=== PATIENT | male | born 1965 | race Caucasian/White ===

== ENCOUNTER 2019-01-24 13:25 | Observation (INO) | payer BC ==
[~2019-01-24 13:25] MED LIST: ISOVUE-370 76%-LOCM 1 ML ONE
[2019-01-24 14:12] LABS: #Eosinphils 0.1 thou/uL (0.0-0.7); #Lymphocytes 1.4 thou/uL (1.20-3.40); #Neutrophils 8.4 thou/uL (1.40-6.50); %Basophils 0.1 % (0.0-1.0); %Eosinophils 1.2 % (0.0-10.0); %Monocytes 9.5 % (0.0-10.0); %Neutrophils 76.2 % (42.0-75.0); Hemoglobin 15.4 g/dL (14.0-18.0); Mean Corpuscular HGB CONC 34.6 g/dL (32.0-36.0); Mean Corpuscular Volume 86.7 fL (78.0-98.0); Mean Platelet Volume 6.6 fL (7.4-10.4); Platelet Count 256 thou/uL (130-400); RBC Distribution Width 12.6 % (11.5-14.5); Red Blood Cell (RBC) Count 5.14 mill/uL (4.70-6.10)
[2019-01-24 14:34] LABS: ALT (SGPT) 22 U/L (8-55); AST (SGOT) 19 U/L (5-34); Albumin 4.6 g/dL (3.5-5.0); Alkaline Phosphatase 75 U/L (40-150); Anion Gap 17 mmol/L (10-20); BUN (Urea Nitrogen) 14 mg/dL (8.4-25.7); Bilirubin, Total 0.7 mg/dL (0.2-1.2); Calc. Creatinine Clearance 0 mL/min (70-130); Carbon Dioxide 18 mmol/L (22-29); Chloride 104 mmol/L (98-107); Estimated GFR-MDRD Greater than 90; Globulin 3.2 g/dL (2.4-3.5); Glucose 84 mg/dL (70-105); Lipase 23 U/L (8-78); Potassium 3.5 mmol/L (3.5-5.1); Protein, Total 7.8 g/dL (6.0-8.3); Sodium 135 mmol/L (136-145)
[2019-01-24] MEDS ORDERED: HYDROmorphone 0.5 MG/0.5 ML SYRINGE ONE ×3 (14:35→17:10)
[2019-01-24] MEDS ORDERED: Bisacodyl 10 MG SUPP ONE (14:35)
[2019-01-24] MEDS ORDERED: Ondansetron PF 4 MG/2 ML Vial ONE (14:35)
--- NOTE | 2019-01-24 15:16 | CT ---
ABDOMEN AND PELVIC CT SCAN WITH IV CONTRAST: Date: 01/24/19 HISTORY: Abdominal pain, diverticulitis. FINDINGS: Small old granuloma calcification changes are noted in both lungs. The liver, gallbladder, spleen, an d adrenal glands are unremarkable. There is some minimal fat stranding in the region of the head of t he pancreas, raising concern for the possibility of some minimal pancreatitis, correlate with pancrea tic enzymes in this regard. No significant abnormal peripancreatic fluid or pseudocyst. No evidence f or renal calculus or acute obstruction. Occasional sigmoid colon diverticulosis. No CT evidence fo r acute diverticulitis. No CT evidence for acute appendicitis. Grade II spondylolisthesis of L5 over S1 with bilateral pars defects. No abscess or abnormal fluid collection. IMPRESSION: Minimal fat stranding around the region of the head of the pancreas raising concern for the possibili ty of minimal pancreatitis without abnormal fluid collection or pseudocyst. Correlate with pancreatic enzymes. No evidence for ductal dilatation. No renal calculus or obstruction. No CT evidence for acute appendicitis or acute diverticulitis. Grade II spondylolisthesis at L5-S1 with bilateral pars d efects. POS: [facility]
[2019-01-24] MEDS ORDERED: Sucralfate 1 GM/10 ML UDCUP ONE (17:57)
[2019-01-24] MEDS ORDERED: Ondansetron PF 4 MG/2 ML Vial IVP PRN (18:30)
[2019-01-24] MEDS ORDERED: Bisacodyl 5 MG TAB PO PRN (18:30)
[2019-01-24] MEDS ORDERED: Acetaminophen 650 MG Suppository PR PRN (18:30)
[2019-01-24] MEDS ORDERED: Fentanyl 100 MCG/2 ML VIAL SLOW IVP PRN (18:31)
[2019-01-24] MEDS ORDERED: Lidocaine 2% Viscous Solution 10 ML, Aluminum & Magnesium Hydroxide 30 ML SSW PRN (18:38)
--- NOTE | 2019-01-24 19:15 | HP ---
PRIMARY CARE PROVIDER: Carolina Still MD CHIEF COMPLAINT: Abdominal pain. HISTORY OF PRESENT ILLNESS: Mr. Milian is a pleasant 53-year-old gentleman, who was seen at [facility] on January 24, 2019. He reports that he had an episode of acute pancreatitis 2 or 3 years ago, for which he was hospitalized for 6 days. He reports that he started having abdominal discomfort ago. He describes it as pain across his mid abdomen, not accompanied by nausea, vomiting, or diarrhea. He describes it as a burning sensation, nonradiating, worse with drinking fluids, 7 to 8/10 at its worst. He cannot recall any relieving factors. He has been unable to tolerate diet. He presented to the emergency room because of ongoing abdominal pain. REVIEW OF SYSTEMS: All other systems reviewed and found to be negative. PAST MEDICAL HISTORY: Migraine, left shoulder arthritis, left torn rotator cuff , acute pancreatitis. PAST SURGICAL HISTORY: Appendectomy and hernia repair. FAMILY HISTORY: No family history of premature coronary artery disease. SOCIAL HISTORY: The patient denies tobacco use, alcohol use, or recreational drug use. ALLERGIES: No known drug allergies. HOME MEDICATIONS: None. PHYSICAL EXAMINATION: GENERAL: On examination, Mr. Milian is awake and alert, not in acute distress. VITAL SIGNS: Blood pressure is 117/74, pulse 71, respiratory rate 18, and oxygen saturation 98% on room air. He is afebrile. EYES: No scleral icterus, no conjunctival pallor. ENT: Moist mucosal membranes. No oropharyngeal erythema or exudates. NECK: Supple, nontender, trachea is midline. RESPIRATORY: Accessory muscles of breathing are not active. Chest wall movements are symmetric bilaterally. LUNGS: Clear to auscultation, without wheeze, rhonchi, or crepitations. CARDIOVASCULAR: S1 and S2 are heard, regular. Peripheral pulses palpable. No carotid bruit. No pericardial rub. ABDOMEN: Soft, mild right upper quadrant tenderness. No guarding or rigidity. Bowel sounds heard. No hepatomegaly. No splenomegaly. SKIN: No rashes or subcutaneous nodules. LYMPHATIC: No cervical lymphadenopathy. PSYCHIATRIC: Normal mood, normal affect. The patient is oriented to person, place, and time. LABORATORY AND DIAGNOSTIC DATA: Mr. Milian's labs and investigations were reviewed. He has leukocytosis with 11,000 white cells, of which 76% are neutrophils, normal hemoglobin, normal platelet count, decreased sodium of 135, normal potassium, decreased carbon dioxide of 18, otherwise unremarkable comprehensive metabolic profile, normal lactic acid and normal lipase level. CT scan of the abdomen and pelvis done with IV contrast showed minimal fat stranding around the region of the pancreas raising concern for the possibility of minimal pancreatitis without abnormal fluid collection or pseudocyst. There was no evidence for ductal dilatation. He had grade 2 spondylolisthesis at L5-S1 with bilateral pars defects. ASSESSMENT AND PLAN: Mr. iMlian is a pleasant 53-year-old gentleman, who was seen at [facility] on January 24, 2019. His problem list includes : 1. Abdominal pain: Mr. Milian is presenting with abdominal pain, etiology unclear at this time. Given the CT scan findings, acute pancreatitis is a possibility, although the lack of elevated lipase goes against this. We will check amylase level. We will admit the patient to the hospital. We will start him on clear fluid diet when he can tolerate diet. We will administer pain medications. We will provide intravenous hydration. 2. Migraines: The patient has history of migraines. He denies any recent migraine episodes. Many thanks for allowing me to participate in your patient's care. Please feel free to contact me with any questions or concerns. LEVEL OF RISK: Moderate. LEVEL OF COMPLEXITY: Moderate. Job ID: [id number] MTDD
[2019-01-24] MEDS ORDERED: Fentanyl 100 MCG/2 ML VIAL ONE (19:21)
[2019-01-24] MEDS: Sodium Chloride 0.9% 1,000 ML IV SCH (21:09)
[2019-01-24] MEDS: Acetaminophen 650 MG in Premix Bag 1 BAG IVPB PRN (23:41)
[2019-01-25 05:32] LABS: #Eosinphils 0.2 thou/uL (0.0-0.7); #Lymphocytes 1.5 thou/uL (1.20-3.40); #Neutrophils 6.9 thou/uL (1.40-6.50); %Basophils 0.5 % (0.0-1.0); %Eosinophils 1.7 % (0.0-10.0); %Lymphocytes 15.7 % (21.0-51.0); %Monocytes 10.6 % (0.0-10.0); %Neutrophils 71.5 % (42.0-75.0); Hemoglobin 14.2 g/dL (14.0-18.0); Mean Corpuscular HGB CONC 33.8 g/dL (32.0-36.0); Mean Corpuscular Hemoglobin 28.9 pg (27.0-31.0); Mean Corpuscular Volume 85.6 fL (78.0-98.0); Mean Platelet Volume 6.7 fL (7.4-10.4); Platelet Count 247 thou/uL (130-400); RBC Distribution Width 12.5 % (11.5-14.5); White Blood Cell (WBC) Count 9.6 thou/uL (4.8-10.8)
[2019-01-25 05:59] LABS: ALT (SGPT) 17 U/L (8-55); AST (SGOT) 17 U/L (5-34); Albumin 3.9 g/dL (3.5-5.0); Alkaline Phosphatase 66 U/L (40-150); Anion Gap 14 mmol/L (10-20); BUN (Urea Nitrogen) 9 mg/dL (8.4-25.7); Bilirubin, Total 0.6 mg/dL (0.2-1.2); Calc. Creatinine Clearance 167 mL/min (70-130); Calcium 9.2 mg/dL (7.8-10.44); Carbon Dioxide 21 mmol/L (22-29); Chloride 105 mmol/L (98-107); Estimated GFR-MDRD Greater than 90; Glucose 72 mg/dL (70-105); Lipase 13 U/L (8-78); Potassium 3.8 mmol/L (3.5-5.1); Protein, Total 6.9 g/dL (6.0-8.3); Sodium 136 mmol/L (136-145)
[2019-01-25] MEDS: Acetaminophen 650 MG in Premix Bag 1 BAG IVPB PRN (06:15)
[2019-01-25] MEDS: Enoxaparin Sodium 40 MG/0.4 ML SYRINGE SC SCH (09:27)
[2019-01-25] MEDS: Acetaminophen 325 MG TAB PO PRN ×2 (09:29→14:06)
[2019-01-25] MEDS: Sodium Chloride 0.9% 1,000 ML IV SCH ×2 (09:31→16:55)
[2019-01-25] MEDS ORDERED: Acetaminophen 1,000 MG in Premix Bag 1 BAG IVPB SCH (18:00)
--- NOTE | 2019-01-25 18:37 | PDOC.PN ---
- Subjective Encounter Start Date: 01/25/19 Encounter Start Time: 17:30 Pt seen for followup re: acute pancreatitis. Says still has abdo pain, nausea. - Objective MAR Reviewed: Yes Vital Signs & Weight: Vital Signs (12 hours) Temp Pulse Resp BP Pulse Ox 01/25/19 15:14 98.1 F 64 20 114/77 95 01/25/19 11:29 98.0 F 74 16 133/74 94 L 01/25/19 07:45 98.1 F 72 16 137/71 92 L Weight Weight 228 lb I&O: 01/24/19 01/25/19 01/26/19 06:59 06:59 06:59 Intake Total 838 4050 Output Total 900 1145 Balance -62 2905 Result Diagrams: 01/25/19 04:37 01/25/19 04:37 Additional Labs: labs reviewed by me Phys Exam - Physical Examination Obese HEENT: moist MMs, sclera anicteric, oral pharynx no lesions, 2+ tonsils Neck: no nodes, no JVD, supple, full ROM Respiratory: clear to auscultation bilateral Cardiovascular: RRR, no rub S1, S2 Gastrointestinal: soft, no distention, positive bowel sounds mild epigastric tenderness, no guarding or rigidity Neurological: moves all 4 limbs Psychiatric: normal affect, A&O x 3 Dx/Plan (1) Acute pancreatitis Code(s): K85.90 - ACUTE PANCREATITIS WITHOUT NECROSIS OR INFECTION, UNSP Status: Acute Comment: slowly improving (2) Hyponatremia Code(s): E87.1 - HYPO-OSMOLALITY AND HYPONATREMIA Status: Resolved (3) Leucocytosis Code(s): D72.829 - ELEVATED WHITE BLOOD CELL COUNT, UNSPECIFIED Status: Resolved - Plan out of bed/ambulate * . Review of Systems - Review of Systems Constitutional: negative: fever, chills, sweats, weakness, malaise Cardiovascular: negative: chest pain, palpitations, orthopnea, paroxysmal nocturnal dyspnea, edema, light headedness Gastrointestinal: Nausea, Abdominal Pain. negative: Vomiting, Diarrhea, Constipation, Melena, Hematochezia Genitourinary: negative: Dysuria, Frequency, Incontinence, Hematuria, Retention Skin: negative: Rash, Lesions, Pop, Bruising - Medications/Allergies Allergies/Adverse Reactions: Allergies Allergy/AdvReac Type Severity Reaction Status Date / Time No Known Drug Allergies Allergy Verified 01/24/19 22:58 Medications: Current Medications Acetaminophen (Tylenol) 650 mg PO Q4H PRN PRN Reason: Headache/Fever/Mild Pain (1-3) Last Admin: 01/25/19 14:06 Dose: 650 mg Acetaminophen (Tylenol) 650 mg NC Q4H PRN PRN Reason: Headache/Fever/Mild Pain (1-3) Bisacodyl (Dulcolax) 10 mg PO DAILYPRN PRN PRN Reason: Constipation Lidocaine HCl 10 ml/ Al (Hydroxide/Mg Hydroxide 30 ml) 0 ml SSW Q8H PRN PRN Reason: heartburn Last Admin: 01/25/19 15:04 Dose: 1 dose Enoxaparin Sodium (Lovenox) 40 mg SC 0900 [facility] Last Admin: 01/25/19 09:27 Dose: 40 mg Fentanyl (Sublimaze) 12.5 mcg SLOW IVP Q6H PRN PRN Reason: Pain Sodium Chloride (Normal Saline 0.9%) 1,000 mls @ 70 mls/hr IV .[id number] [facility] Last Admin: 01/25/19 16:55 Dose: 1,000 mls Acetaminophen 1,000 mg/ Device 100 mls @ 400 mls/hr IVPB NOW [facility] Stop: 01/25/19 20:00 Ondansetron HCl (Zofran) 4 mg IVP Q6H PRN PRN Reason: Nausea/Vomiting
[2019-01-26] MEDS: Ketorolac Tromethamine 30 MG/ML VIAL IVP SCH ×3 (00:18→11:31)
[2019-01-26 05:58] LABS: #Eosinphils 0.3 thou/uL (0.0-0.7); #Lymphocytes 1.5 thou/uL (1.20-3.40); #Monocytes 0.7 thou/uL (0.11-0.59); #Neutrophils 4.5 thou/uL (1.40-6.50); %Basophils 0.7 % (0.0-1.0); %Eosinophils 3.6 % (0.0-10.0); %Lymphocytes 20.9 % (21.0-51.0); %Monocytes 10.2 % (0.0-10.0); %Neutrophils 64.6 % (42.0-75.0); Mean Corpuscular HGB CONC 33.5 g/dL (32.0-36.0); Mean Corpuscular Hemoglobin 29.3 pg (27.0-31.0); Mean Corpuscular Volume 87.4 fL (78.0-98.0); Mean Platelet Volume 6.8 fL (7.4-10.4); Platelet Count 256 thou/uL (130-400); RBC Distribution Width 12.6 % (11.5-14.5); Red Blood Cell (RBC) Count 4.78 mill/uL (4.70-6.10)
[2019-01-26 06:29] LABS: Albumin 3.9 g/dL (3.5-5.0); Alkaline Phosphatase 62 U/L (40-150); Anion Gap 15 mmol/L (10-20); BUN (Urea Nitrogen) 8 mg/dL (8.4-25.7); Bilirubin, Total 0.6 mg/dL (0.2-1.2); Calc. Creatinine Clearance 163 mL/min (70-130); Calcium 9.2 mg/dL (7.8-10.44); Carbon Dioxide 21 mmol/L (22-29); Chloride 106 mmol/L (98-107); Estimated GFR-MDRD Greater than 90; Globulin 2.8 g/dL (2.4-3.5); Glucose 83 mg/dL (70-105); Potassium 3.6 mmol/L (3.5-5.1); Protein, Total 6.7 g/dL (6.0-8.3); Sodium 138 mmol/L (136-145)
[2019-01-26 06:30] LABS: ALT (SGPT) 14 U/L (8-55); AST (SGOT) 13 U/L (5-34); Lipase 9 U/L (8-78)
[2019-01-26] MEDS ORDERED: Ketorolac Tromethamine 10 MG TAB PO PRN (11:32)
[2019-01-26] MEDS: Enoxaparin Sodium 40 MG/0.4 ML SYRINGE SC SCH (11:33)
[2019-01-26 11:50] VITALS: BP 129/85; TEMP 97.6
--- NOTE | 2019-01-26 13:02 | DIS ---
DATE OF ADMISSION: 01/24/2019 DATE OF DISCHARGE: 01/26/2019 PRIMARY CARE PROVIDER: Carolina Still MD DISCHARGE DIAGNOSIS: Acute pancreatitis. CONDITION OF THE PATIENT ON THE DAY OF DISCHARGE: Stable. I assessed Mr. Milian on the day of discharge. He denies any chest pain or shortness of breath. Vital signs are stable. S1 and S2 are heard, regular. Lungs are clear to auscultation bilaterally. Abdomen is soft, nontender, bowel sounds are heard. DISCHARGE MEDICATIONS: 1. Toradol 10 mg 3 times a day as needed, prescription for 10 doses. 2. Azelastine nasal spray as needed. 3. Flonase as needed. 4. Levocetirizine as needed. HOSPITAL COURSE: Mr. Milian is a pleasant 53-year-old gentleman, who was admitted to [facility] on January 24, 2019, for acute pancreatitis based on CT imaging. Please refer to my history and physical note dated January 24, 2019, for further details. He was treated with pain medications and intravenous fluids. He slowly improved by the day of discharge. Please note, his amylase and lipase levels were normal during this hospitalization. On the day of discharge, he has normal sodium, normal potassium, creatinine 0.75, amylase 22, and lipase 9. LFTs were normal during this hospitalization. White count is 7000, hemoglobin 14, and platelet count 256,000. Many thanks for allowing me to participate in your patient's care. Please feel free to contact me with any questions or concerns. DISCHARGE DESTINATION: Home. Job ID: [id number]
== END 2019-01-26 12:35 | disposition home or self-care (01) ==
LOC: ERS 13:25 → 2SW 18:00
PROVIDERS: ADMIT Internal Medicine; ATTEND Internal Medicine
DX: K85.90 Acute pancreatitis without necrosis or infection, unspecified (principal); M19.012 Primary osteoarthritis, left shoulder; G43.909 Migraine, unspecified, not intractable, without status migrainosus; Z90.49 Acquired absence of other specified parts of digestive tract; Z98.890 Other specified postprocedural states
CPT/HCPCS: 36415; 74177; 80053; 82150; 83605; 83690; 85025; 96361; 96365; 96372; 96374; 96375; 96376; G0378; J0131; J1170; J1650; J1885; J2405; J3010; Q9966

== ENCOUNTER 2019-02-03 10:53 | Outpatient (CLI) | payer BC | END 2019-02-03 10:54 | disposition home or self-care (01) | LOC: LABBT 10:53 | PROVIDERS: ATTEND Surgery | DX: Z01.818 Encounter for other preprocedural examination (principal); K40.90 Unilateral inguinal hernia, without obstruction or gangrene, not specified as recurrent | CPT/HCPCS: 93005; 93010 ==

== ENCOUNTER 2019-02-09 07:16 | Day surgery (SDC) | payer BC ==
[2019-02-03 11:29] VITALS: BMI 30.7
[2019-02-09] MEDS ORDERED: Bupivacaine/Epinephrine 0.25% 30 ML VIAL ONE (08:48)
[2019-02-09] MEDS ORDERED: Fentanyl 100 MCG/2 ML VIAL ONE ×2 (08:54)
[2019-02-09] MEDS ORDERED: Morphine 4 MG/ML VIAL ONE (09:27)
[2019-02-09] MEDS ORDERED: HYDROmorphone 2 MG/ML VIAL ONE (10:20)
--- NOTE | 2019-02-09 11:28 | OP ---
DATE OF PROCEDURE: 02/09/2019 PREOPERATIVE DIAGNOSIS: Right inguinal hernia. PROCEDURE PERFORMED: Right inguinal hernia repair with mesh. INDICATIONS: A 53-year-old male painful bulge in right groin, found to have a hernia. FINDINGS: Right direct inguinal hernia. DESCRIPTION OF PROCEDURE: After informed consent was obtained, the patient was taken to the operating room, given general and mask anesthesia, placed in supine position. Abdomen was prepped and draped in usual fashion. Local anesthesia was infiltrated subcutaneously and deep. A transverse right inguinal incision was performed. Subcu was divided sharply. The fascia external oblique was incised in direction of its fibers through the external ring. Spermatic cord was isolated with Hamilton drain. The hernia sac was found. It was a direct hernia. This was from surrounding cord structures and circumscribed. Reduction was maintained with a PHS hernia system. The posterior layer was placed in the preperitoneal space, anterior was laid out, tucked under the external oblique fascia laterally, sutured to the pubic tubercle medially. A notch was cut out for the spermatic cord. The external oblique fascia was closed over the cord with a running 3-0 Vicryl. Emmy was closed with interrupted 3-0 Vicryl, and the skin was closed with a running subcuticular 4-0 Rapide. Steri-Strips applied. Sterile bandage applied. The patient tolerated the procedure well, transferred to Recovery in good condition. Sponge and needle count verified correct x2. Job ID: [id number]
[2019-02-09] MEDS ORDERED: HYDROcodone/Acetaminophen 5/325 mg Tablet ONE (11:43)
[2019-02-09] MEDS ORDERED: ePHEDrine 50 MG/ML VIAL ONE (15:48)
[2019-02-09] MEDS ORDERED: Glycopyrrolate 0.2 MG/ML 5 ML SYRINGE ONE (15:48)
[2019-02-09] MEDS ORDERED: PROPOFOL 200 MG/20 ML VIAL ONE (15:48)
[2019-02-09] MEDS ORDERED: Ondansetron PF 4 MG/2 ML Vial ONE (15:48)
[2019-02-09] MEDS ORDERED: Rocuronium Bromide 10 MG/ML (10ML VIAL) ONE (15:48)
[2019-02-09] MEDS ORDERED: Dexamethasone 20 MG/5 ML VIAL ONE (15:48)
[2019-02-09] MEDS ORDERED: Lidocaine 1% PF 5 ML VIAL ONE (15:48)
== END 2019-02-09 11:45 | disposition home or self-care (01) ==
LOC: SDC 07:16
PROVIDERS: ATTEND Surgery
PROC: 0YU50JZ Supplement Right Inguinal Region with Synthetic Substitute, Open Approach (ICD-10-PCS; principal; 2019-02-09)
DX: K40.90 Unilateral inguinal hernia, without obstruction or gangrene, not specified as recurrent (principal); Z88.5 Allergy status to narcotic agent
CPT/HCPCS: C1781; J1170; J2270; J3010

== ENCOUNTER 2020-03-29 03:09 | Emergency (ER) | payer BC ==
[2020-03-29 03:32] LABS: #Eosinphils 0.1 thou/uL (0.0-0.7); #Lymphocytes 1.5 thou/uL (1.20-3.40); #Monocytes 1.5 thou/uL (0.11-0.59); #Neutrophils 11.4 thou/uL (1.40-6.50); %Basophils 0.1 % (0.0-1.0); %Eosinophils 0.3 % (0.0-10.0); %Lymphocytes 10.4 % (21.0-51.0); %Monocytes 10.2 % (0.0-10.0); %Neutrophils 78.9 % (42.0-75.0); Hemoglobin 15.3 g/dL (14.0-18.0); Mean Corpuscular HGB CONC 32.5 g/dL (32.0-36.0); Mean Corpuscular Hemoglobin 28.8 pg (27.0-31.0); Mean Corpuscular Volume 88.6 fL (78.0-98.0); Mean Platelet Volume 6.8 fL (7.4-10.4); Platelet Count 255 thou/uL (130-400); RBC Distribution Width 12.6 % (11.5-14.5); White Blood Cell (WBC) Count 14.5 thou/uL (4.8-10.8)
[2020-03-29 03:53] LABS: ALT (SGPT) 20 U/L (8-55); AST (SGOT) 16 U/L (5-34); Albumin 4.6 g/dL (3.5-5.0); Alkaline Phosphatase 83 U/L (40-110); Anion Gap 15 mmol/L (10-20); BUN (Urea Nitrogen) 11 mg/dL (8.4-25.7); Bilirubin, Total 0.8 mg/dL (0.2-1.2); Calc. Creatinine Clearance 0 mL/min (70-130); Calcium 9.7 mg/dL (7.8-10.44); Carbon Dioxide 23 mmol/L (22-29); Chloride 101 mmol/L (98-107); Estimated GFR-MDRD 87; Globulin 3.5 g/dL (2.4-3.5); Glucose 107 mg/dL (70-105); Lipase 62 U/L (8-78); Protein, Total 8.1 g/dL (6.0-8.3); Sodium 135 mmol/L (136-145)
[2020-03-29] MEDS ORDERED: HYDROcodone/Acetaminophen 5/325 mg Tablet ONE (04:00)
[2020-03-29] MEDS ORDERED: Morphine 4 MG/ML VIAL ONE (05:51)
[2020-03-29] MEDS ORDERED: Ondansetron PF 4 MG/2 ML Vial ONE (05:52)
--- NOTE | 2020-03-29 09:00 | CT ---
PRELIMINARY REPORT/[facility]/EMERGENCY AFTER HOURS PROCEDURE EXAM: CT Abdomen and Pelvis with Intravenous Contrast CLINICAL HISTORY: PT BELIEVES HE IS HAVING A FLARE UP OF PANCREATITIS. PT SAW PCP AND WAS PRESCRIBED TRAMADOL. SURGICAL HISTORY OF APPENDECTOMY AND HERNIA REPAIR. DENIES N/V. TECHNIQUE: Axial computed tomography images of the abdomen and pelvis with intravenous contrast. CONTRAST: With; ISOVUE 370, 94 ML COMPARISON: CT\MO\SR - CT ABDOMEN PELVIS W CON - 01/24/2019 02:29 PM CDT FINDINGS: LUNG BASES: No basilar airspace consolidation or pleural effusion. LIVER: Unremarkable. GALLBLADDER AND BILE DUCTS: The gallbladder is distended with fluid. No pericholecystic fluid. PANCREAS: Fluid and fat stranding surrounding the body and tail of the pancreas which may represent acute pancr eatitis in the appropriate clinical setting. No walled off fluid collection. There is homogeneous enh ancement of the pancreas. Pancreas is mildly atrophic. SPLEEN: Unremarkable. ADRENAL GLANDS: Unremarkable. KIDNEYS, URETERS, AND BLADDER: Unremarkable. No hydronephrosis or nephrolithiasis. No ureteral or bladder calculi. 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 There is mural thickening of the descending colon which is under distended, limiting evaluation. Ther e are scattered colonic diverticula of the descending and sigmoid colon. There is a focal dilatation/ thickening at the distal aspect of the descending colon. There is an intramural 1.2 cm hypodensity in this region. . No significant pericolonic inflammatory changes. APPENDIX: No CT evidence for appendicitis. PERITONEUM: No free fluid. No free air. LYMPH NODES: No lymphadenopathy. REPRODUCTIVE: Unremarkable as visualized. VASCULATURE: No aortic aneurysm. BONES: Bilateral L5 spondylolysis with grade 1 anterolisthesis of L5 and S1. Degenerative changes of the spi ne. ABDOMINAL WALL AND SOFT TISSUES: Unremarkable. IMPRESSION: Fluid and fat stranding surrounding the body and tail of the pancreas which is compatible with acute pancreatitis in the appropriate clinical setting. No walled off fluid collection. 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 Mural thickening of the descending colon thickening which is under distended,, limiting evaluation. F focal dilatation/thickening at the distal aspect of the descending colon, with multiple diverticula. Intramural 1.2 cm hypodensity in this region which is indeterminate but could represent an intramura l abscess versus intramural lesion. No significant pericolonic inflammatory changes. Correlation wit h clinical symptoms is recommended and correlation with colonoscopy may be helpful when clinically st able. ELECTRONICALLY SIGNED BY: Jo-Ann Serrano MD March 29, 2020 3:54:04 AM CDT This report is intended for review by the ordering physician only, in accordance of law. If you recei ve this report in error, please call [facility] at [phone]. FINAL REPORT CT ABDOMEN AND PELVIS WITH IV CONTRAST: I agree with the preliminary report given by Dr. Jo-Ann Serrano of [facility].
[2020-03-29] MEDS ORDERED: Iopamidol-370 76% 500 ML 1 ML ONE (15:11)
== END 2020-03-29 06:45 | disposition home or self-care (01) ==
LOC: ERS 03:09
DX: K85.90 Acute pancreatitis without necrosis or infection, unspecified (principal)
CPT/HCPCS: 74177; 80053; 83690; 85025; 96372; 96374; 96375; J0500; J2270; J2405; Q9967